=== PATIENT | female | born 1995 | race Caucasian/White ===

== ENCOUNTER 2018-09-28 21:31 | Emergency (ER) | payer SELFPAY ==
[~2018-09-28] VITALS: Ht 165.1 cm; Wt 67.3 kg
[2018-09-28] MEDS ORDERED: KETOROLAC 30 MG/ML VIAL (J1885) IV ONE (22:30)
[2018-09-28] MEDS ORDERED: NS 1,000 ML IV ONE (22:30)
[2018-09-28 22:55] LABS: BASO # 0.1 10^3/uL (0.0-0.2); BASO % 0.7 % (0.0-1.0); EOS # 0.2 10^3/uL (0.0-0.50); EOS % 1.9 % (0.0-3.0); HEMATOCRIT 41.4 % (36.0-47.0); HEMOGLOBIN 13.9 g/dl (12.0-15.5); LYMPH # 2.5 10^3/uL (1.5-6.5); MEAN CORPUSCULAR HEMOGLOBIN 30.3 pg (27.0-33.0); MEAN CORPUSCULAR HGB CONC 33.6 g/dl (32.0-36.5); MEAN CORPUSCULAR VOLUME 90.4 fl (80.0-96.0); MONO # 0.5 10^3/uL (0.0-0.8); MONO % 5.7 % (0.0-5.0); NEUTROPHILS # 5.7 10^3/uL (1.8-7.7); NEUTROPHILS % 63.5 % (36.0-66.0); PLATELET COUNT, AUTOMATED 264 10^3/uL (150-450); RED BLOOD COUNT 4.58 10^6/uL (4.00-5.40)
[2018-09-28 23:00] LABS: APPEARANCE, URINE CLEAR (CLEAR); BACTERIA, URINE AUTO NEGATIVE (NEGATIVE); BILIRUBIN, URINE AUTO NEGATIVE (NEGATIVE); BLOOD, URINE BLOOD 3+ (NEGATIVE); COLOR, URINE YELLOW (YELLOW); GLUCOSE, URINE (UA) AUTO NEGATIVE (NEGATIVE); KETONE, URINE AUTO NEGATIVE (NEGATIVE); LEUKOCYTE ESTERASE, URINE AUTO NEGATIVE (NEGATIVE); MUCUS, URINE SMALL (NEGATIVE); NITRITE, URINE AUTO NEGATIVE (NEGATIVE); PROTEIN, URINE AUTO NEGATIVE (NEGATIVE); RBC, URINE AUTO 148 /HPF (0-3); SQUAMOUS EPITHELIAL CELL UR AU 1 /HPF (0-6); UROBILINOGEN, URINE AUTO 0.2 mg/dL (0.0-2.0); WBC, URINE AUTO 1 /HPF (0-3)
[2018-09-28 23:20] LABS: BLOOD UREA NITROGEN 10 MG/DL (7-18); CALCIUM LEVEL 9.1 MG/DL (8.5-10.1); CARBON DIOXIDE LEVEL 28 MEQ/L (21-32); CHLORIDE LEVEL 109 MEQ/L (98-107); CREATININE FOR GFR 0.86 MG/DL (0.55-1.30); GLUCOSE, FASTING 95 MG/DL (70-100); HCG, SERUM QUALITATIVE NEGATIVE (NEGATIVE); POTASSIUM SERUM 4.1 MEQ/L (3.5-5.1); SODIUM LEVEL 141 MEQ/L (136-145)
--- NOTE | 2018-09-28 23:54 | REPVR ---
EXAM: US Pelvis Complete, Transabdominal EXAM DATE/TIME: 09/28/2018 11:01 PM CLINICAL HISTORY: 22 years old, female; Pain; Pelvic pain; Additional info: Heavy vag bleeding, rlq pain TECHNIQUE: Real-time transabdominal pelvic ultrasound with image documentation. Complete exam. COMPARISON: No relevant prior studies available. FINDINGS: Uterus/cervix: Uterus measures 7.1 x 4.2 x 5.4 cm. Endometrial echocomplex measures 2.5 mm. Right adnexa: Right ovary measures 2.4 x 1.5 x 2.3 cm. Left adnexa: Left ovary measures 3.7 x 2 x 2.5 cm. Free fluid: None. Bladder: Normal. Soft tissues: Imaging of the right lower quadrant does not demonstrate any obvious hernia. IMPRESSION: Unremarkable examination. Electronically signed by: Zack Wolf On 09/28/2018 23:54:20 PM
[2018-09-29 01:43] VITALS: BP 130/81
== END 2018-09-29 01:49 | disposition home or self-care (01) ==
LOC: M ED 21:31
DX: N92.0 Excessive and frequent menstruation with regular cycle (principal); F17.210 Nicotine dependence, cigarettes, uncomplicated
CPT/HCPCS: 36415; 76856; 80048; 81001; 84703; 85025; 96361; 96374; 99284; J1885

== ENCOUNTER → 2019-02-17 | Outpatient (CLI) | payer SELFPAY ==
[2019-02-17 17:25] LABS: BASO % 0.2 % (0.0-1.0); EOS # 0.2 10^3/uL (0.0-0.50); EOS % 1.6 % (0.0-3.0); HEMATOCRIT 37.6 % (36.0-47.0); HEMOGLOBIN 12.4 g/dl (12.0-15.5); LYMPH # 2.1 10^3/uL (1.5-6.5); MEAN CORPUSCULAR HEMOGLOBIN 29.7 pg (27.0-33.0); MONO # 0.6 10^3/uL (0.0-0.8); MONO % 6.3 % (0.0-5.0); NEUTROPHILS # 6.5 10^3/uL (1.8-7.7); NEUTROPHILS % 69.5 % (36.0-66.0); PLATELET COUNT, AUTOMATED 215 10^3/uL (150-450); RED BLOOD COUNT 4.18 10^6/uL (4.00-5.40); WHITE BLOOD COUNT 9.3 10^3/uL (4.0-10.0)
[2019-02-17 20:10] LABS: CHLAMYDIA DNA AMPLIFICATION NEGATIVE (NEGATIVE); GC DNA AMPLIFICATION NEGATIVE (NEGATIVE)
[2019-02-20 11:25] LABS: HEPATITIS C VIRUS ABY INDEX < 0.0 INDEX (<0.8); HIV 1&2 SCREEN CENTAUR NEGATIVE (NEGATIVE); RUBELLA IgG QUALITATIVE IMMUNE (IMMUNE)
== END ==
LOC: M SMT 15:11
PROVIDERS: ATTEND Advanced Practice Midwife
DX: Z36.89 Encounter for other specified antenatal screening (principal)

== ENCOUNTER → 2019-04-12 | Outpatient (CLI) | payer OTHER ==
--- NOTE | 2019-04-12 20:38 | REP ---
Clinical: Anatomical evaluation. Comparison: None . Findings: Examination demonstrates a single live intrauterine in cephalic presentation. motion is identified by technologist. Placenta is noted anterior and grade the zero without evidence for placenta previa or abruption. Amniotic fluid volume is normal. Cervix measures 3.9 cm in length and appears closed. No evidence for nuchal cord. Gestational age by LMP 20 weeks 3 days with [facility] 08/27/2019 . Gestational age by current measurements 20 weeks 6 day with [facility] 08/24/2019 . FHR equals 136 beats per minute. BPD 4.9 cm 20 weeks 6 days HC 18.3 cm 20 weeks 5 days AC 16.2 cm 21 weeks 2 days FL 3.3 cm 20 weeks 3 days HL 3.3 cm 21 weeks 1 day HC/AC ratio 1.13 Estimated weight 384 grams ( 64 percentile). Anatomical assessment demonstrates normal structures including cranium, choroid plexus, cavum, cerebellum/posterior fossa, ventricular outflow tracts, diaphragm, stomach, cord insertion/three-vessel cord, kidneys/bladder, spine, and extremities. Limited evaluation of the facial features, lungs and four-chamber heart view. Impression: Single live intrauterine in cephalic presentation demonstrating appropriate interval growth. Anatomical limitations as noted above. No gross abnormality identified. Electronically Signed by Terrell Chery MD 04/12/2019 08:28 P
== END ==
LOC: M RAD 10:36
PROVIDERS: ATTEND Specialist
DX: Z34.82 Encounter for supervision of other normal pregnancy, second trimester (principal); Z3A.20 20 weeks gestation of pregnancy

== ENCOUNTER → 2019-04-28 | Outpatient (CLI) | payer OTHER ==
--- NOTE | 2019-04-28 11:18 | REP ---
Obstetric ultrasound for anatomy follow-up: On the prior study dated 04/12/2019 the facial features, four-chamber view of the heart and lungs were not optimally demonstrated. The study today is for follow-up of these anatomic structures. On the study today the facial profile, upper lip, four-chamber view of the heart and lungs are adequately demonstrated and are unremarkable. The cranium, choroid plexus, cavum septum pellucidum, cerebellum, cardiac right and left ventricular outflow tracts, diaphragm, stomach, cord insertion, three-vessel cord, kidneys, bladder, spine and upper lower extremities are again identified and are again unremarkable. There are no anomalies. There is a single intrauterine gestation. position is variable. heart rate is 144 beats per minute. The placenta is anterior. There is no placenta previa or abruptio. Placenta is grade zero. The amniotic fluid volume subjectively is normal. The cervix is 4.8 cm length. By today's ultrasound gestational age is 23 weeks 3 days/[facility] 08/22/2019. By the first ultrasound gestational age is 23 01/1990/[facility]ANS 08/15/2019. By LMP gestational age is 22 weeks 5 days/[facility] of 2018. Impression: There are no anomalies. The facial features, lungs and four-chamber view of the heart. Adequately demonstrated and are unremarkable. Electronically Signed by Zachary Rose MD 04/28/2019 11:10 A
== END ==
LOC: M RAD 09:46
PROVIDERS: ATTEND Specialist
DX: Z36.9 Encounter for antenatal screening, unspecified (principal); Z3A.23 23 weeks gestation of pregnancy

== ENCOUNTER → 2019-06-09 | Outpatient (CLI) | payer OTHER ==
[2019-06-09 13:54] LABS: BASO % 0.3 % (0.0-1.0); EOS # 0.3 10^3/uL (0.0-0.5); EOS % 3.5 % (0.0-3.0); HEMATOCRIT 32.4 % (36.0-47.0); HEMOGLOBIN 10.8 g/dl (12.0-15.5); LYMPH # 1.5 10^3/uL (1.5-5.0); LYMPH % 19.1 % (24.0-44.0); MEAN CORPUSCULAR HEMOGLOBIN 32.5 pg (27.0-33.0); MEAN CORPUSCULAR HGB CONC 33.3 g/dl (32.0-36.5); MEAN CORPUSCULAR VOLUME 97.6 fl (80.0-96.0); MONO # 0.6 10^3/uL (0.0-0.8); MONO % 7.5 % (0.0-5.0); NEUTROPHILS # 5.4 10^3/uL (1.5-8.5); NEUTROPHILS % 69.1 % (36.0-66.0); PLATELET COUNT, AUTOMATED 166 10^3/uL (150-450); RED BLOOD COUNT 3.32 10^6/uL (4.00-5.40); WHITE BLOOD COUNT 7.7 10^3/uL (4.0-10.0)
== END ==
LOC: M SMT 09:50
PROVIDERS: ATTEND Specialist
DX: Z34.02 Encounter for supervision of normal first pregnancy, second trimester (principal); Z36.89 Encounter for other specified antenatal screening

== ENCOUNTER → 2019-07-26 | Outpatient (REF) | payer OTHER | LOC: M LAB REF 17:00 | PROVIDERS: ATTEND Advanced Practice Midwife | DX: Z36.85 Encounter for antenatal screening for Streptococcus B (principal) ==

== ENCOUNTER 2019-09-01 13:07 | Inpatient (IN) | payer OTHER ==
[~2019-09-01] VITALS: Ht 165.1 cm; Wt 89.9 kg
[2019-09-01] MEDS: miSOPROStol 50 MCG 1/2 TAB (S0191) PO SCH ×3 (03:27→21:10)
[2019-09-01 13:25] VITALS: BP 133/81
[2019-09-01] MEDS ORDERED: LACTATED RINGER'S 1000 ML IV STA (14:19)
--- NOTE | 2019-09-01 14:32 | HPEPDOC ---
Obstetrical History & Physical General Date of Admission Sep 01, 2019 at 13:07 History of Present Illness Chief Complaint: Induction of labor Information Provided By: Patient Age: 23 : 1 Term: 0 Pre-term: 0 Abortions: 0 Livin Care Care: Good Care Dating Final EDC: Aug 27, 2019 Final EDC by: LMP EGA at Admission: 40 (+5) Antepartum Course Height (inches): 65 Pre- weight (lbs.): 155 Admission Weight (lbs.): 197 Past Medical History Past Obstetrical History : Past Obstetrical History: [address] [employer] History: No pertinent history Past Medical History Surgical History: Denies/None Family History Significant Family History: No pertinent family hx Social History Marital Status: Single Family situation: Spouse/partner home Psychosocial History: No pertinent psych hx * Smoker: non-smoker Alcohol: Denies Drugs: denies Abuse Violence Screening Have you been hit/kicked/slapp: No Have you been sexually assault: No Imunizations Tdap status: declined Influenza Status: declined Allergies Coded Allergies: No Known Allergies (Unverified , 09/28/18) Medications No Active Prescriptions or Reported Meds Physical Examination Physical Examination GENERAL: Alert and oriented times three. BREAST: . ABDOMEN: Gravid and non-tender to touch. FETUS: Is vertex (VTX) by sterile vaginal examination (SVE), fetus is vertex (VTX) by Bharath. HEART RATE: Regular rate and rhythm. LUNGS: Clear to auscultation (CTA). EXTREMITIES: No edema. No clonus. Deep tendon reflexes (DTRs) + 2. Laboratory Data [facility] Laboratory Tests 2 09/01/19 13:18: Serology Scanned Report Hepatitis B Testing Pertinent Laboratoy Data Blood Type: A+ RBC Antibody Screen: Negative HIV: Negative Hepatitis B: Negative Hepatitis C: Negative Rapid Plasma Reagin: Nonreactive Rubella: Immune Chlamydia/Gonorrhea: Negative Group B Streptococcus: Negative Quad Screen Test: Declined Glucose Tolerance Test: 90 Anatomy Ultrasound Ultrasound Date: Apr 12, 2019 Placenta Location: Anterior Normal Anatomy: Yes Placenta Previa: No Estimated Weight (grams): 384 Other Ultrasounds 02/17/19 dating 13w0d 04/28/19 f/u anatomy WNL Steroid Therapy Steroid Therapy: No Vaginal Examination Dilation: Fingertip Effacement: 50% Station: -3 (-4) Cervical Consistency: Soft Cervical Position: Posterior Presentation: Cephalic presentation Assessment Heart Rate (FHR): 155 Variability: Moderate Accelerations: Positive Decelerations: None Tocometer Frequency: irregular Strength: palpated as mild Assessment/Plan Assessment Gisselle is a 23-year-old (G)1 para (P)0-0-0-0 at 40+5 weeks by 13-week ultrasound. Presents to Labor and Delivery (L&D) for planned induction, postdates. Denies regular UC, LOF, bleeding. Reports good movement. Plan Admit and orient. Machine Records Units Supervisor and consent per consult Dr Morel Diet: regular. Group B Streptococcus (GBS) negative. Labs and intravenous (IV) per unit protocol. Counseled on misoprostol, Pitocin and induction of labor (IOL). Lactated Ringers (LR): Bolus 500 mL, then saline lock. Pt plans to labor ad cami. Anticipate normal spontaneous delivery (). C-S as appropriate. Martita Sheth CNM Sep 01, 2019 14:32
[2019-09-01 14:42] LABS: HEMATOCRIT 38.7 % (36.0-47.0); HEMOGLOBIN 12.9 g/dl (12.0-15.5); MEAN CORPUSCULAR HEMOGLOBIN 30.7 pg (27.0-33.0); MEAN CORPUSCULAR HGB CONC 33.3 g/dl (32.0-36.5); MEAN CORPUSCULAR VOLUME 92.1 fl (80.0-96.0); PLATELET COUNT, AUTOMATED 182 10^3/uL (150-450); WHITE BLOOD COUNT 8.2 10^3/uL (4.0-10.0)
[2019-09-01 15:42] VITALS: BP 113/56
[2019-09-01 18:12] VITALS: BP 120/58
[2019-09-01 21:09] VITALS: BP 119/65
[2019-09-01 22:53] VITALS: BP 101/53
[2019-09-01 23:53] VITALS: BP 100/54
[2019-09-02] VITALS (33 sets, daily range): BP systolic 102–142; BP diastolic 47–82
[2019-09-02] MEDS: miSOPROStol 50 MCG 1/2 TAB (S0191) PO SCH (08:21)
[2019-09-02] MEDS ORDERED: LR 1,000 ML IV SCH (12:15)
[2019-09-02] MEDS ORDERED: OXYTOCIN DRIP 30 UNITS in IV 1 EA IV SCH (12:15)
[2019-09-02] MEDS ORDERED: PROMETHAZINE INJ 25 MG/ML VIAL (J2550) IV PRN (20:15)
[2019-09-02] MEDS ORDERED: BUTORPHANOL 2 MG/ML INJ (J0595) IV ONE (21:00)
[2019-09-03] VITALS (14 sets, daily range): BP systolic 120–141; BP diastolic 60–92
[2019-09-03 11:59] LABS: CORD GAS ABE V -7.8; CORD GAS HCO3 V 17.9 MEQ/L; CORD GAS O2 SAT V 76.2 %; CORD GAS PH V 7.291 UNITS; CORD GAS PO2 V 36.1 mmHg; CORD GAS SBC V 17.8 MEQ/L; CORD GAS TCO2 V 19.1 MEQ/L
[2019-09-03 12:02] LABS: CORD GAS ABE A -6.3; CORD GAS HCO3 A 19.3 MEQ/L; CORD GAS O2 SAT A 70.4 %; CORD GAS PCO2 A 39.1 mmHg; CORD GAS PH A 7.311 UNITS; CORD GAS PO2 A 31.5 mmHg; CORD GAS SBC A 18.7 MEQ/L; CORD GAS TCO2 A 20.5 MEQ/L
[2019-09-03] MEDS ORDERED: RHOGAM 300 MCG (1500 IU) INJ (J2790) IM SCH (12:30)
[2019-09-03] MEDS ORDERED: LIDOCAINE 1% MDV 20ML VIAL INFIL ONE (12:30)
[2019-09-03] MEDS ORDERED: ANUSOL HC CREAM 30GM TOP PRN (12:30)
[2019-09-03] MEDS ORDERED: OXYTOCIN DRIP 30 UNITS in IV 1 EA IV SCH (12:30)
[2019-09-03] MEDS ORDERED: METHYLERGONOVINE MALEATE 0.2 MG TAB PO PRN (12:30)
[2019-09-03] MEDS ORDERED: MEASLES,MUMPS,RUBELLA VACCINE INJ (MMR-II) (90707) SC SCH (12:30)
[2019-09-03] MEDS ORDERED: ACETAMINOPHEN 500 MG TAB PO PRN (12:30)
[2019-09-03] MEDS ORDERED: miSOPROStol 200 MCG TAB (S0191) PR ONE (12:30)
[2019-09-03] MEDS ORDERED: ACETAMINOPHEN TAB 650MG DOSE (2X325MG) PO PRN (12:30)
[2019-09-03] MEDS ORDERED: DOCUSATE SODIUM 100 MG CAP PO PRN (12:30)
[2019-09-03] MEDS ORDERED: IBUPROFEN 800 MG TAB PO PRN (12:30)
[2019-09-03] MEDS ORDERED: IBUPROFEN 600 MG TAB PO PRN (12:30)
[2019-09-03] MEDS: DIBUCAINE 1% OINTMENT 30GM TOP PRN (14:45)
--- NOTE | 2019-09-03 18:09 | DN ---
DATE: 09/03/2019 DATE OF DELIVERY: 09/03/2019 TIME OF : 11:48 GENDER: Female. SCORE: 9 and 9 WEIGHT: 3750 grams or 8 pounds, 4 ounces. ESTIMATED BLOOD LOSS: 300 mL ANESTHESIA: None LACERATION: First-degree midline laceration. COUNTS: Five laparotomy sponges accounted for prior to and after delivery. Four sharps removed from delivery field. DELIVERY NOTE: On September 03, 2019, Ms. Arteaga, a 23-year-old, 1, now para 1 had a spontaneous vaginal delivery of a live born female infant, scores 9 and 9, weight was 3750 grams or 8 pounds 4 ounces. Head was delivered occiput anterior (OA) followed by delivery of right anterior shoulder. There was a nuchal cord, which was manually reduced and this was followed by delivery of left posterior shoulder and corpus. was then handed mom with a good cry. Cord was clamped x2, was cut by the father of baby under my direction. Cord gases were then obtained. Cord gases were 7.3, 7.29, base excess of -6.3, -7.8. Placenta was then drained and delivered grossly intact. A premixed bag of 500 mL of normal saline with 30 units of Pitocin was bolused along with uterine massage. The uterus was firm. On inspection, there was a first-degree midline laceration, which was repaired with 3-0 Vicryl Rapide. On re-inspection, cervix, vagina and perineum was grossly intact and hemostatic. Mom and baby recovered in stable condition. The couple decided to name their daughter
[2019-09-04 06:03] VITALS: BP 126/58
[2019-09-04] MEDS: PRENATAL VITAMINS CHEWABLE TABLET PO SCH (09:21)
--- NOTE | 2019-09-04 17:27 | IPNPDOC ---
Progress Note Date of Service: Sep 04, 2019 Day#: 1 Progress Note SUBJECT: She has been ambulating, voiding spontaneously without issue and ashlyn ating regular diet. Denies any pain. Patient did have a fever 09/03/19 of 100.7 but has been afebrile since. OBJECTIVE: VITAL SIGNS: Within normal limits, afebrile. Alert and oriented times three. Breath sounds clear to auscultation. Heart rate: Regular rate and rhythm, no murmurs, rubs or gallops. Abdomen: Fundus firm at U-2. Soft, NTTP. Moderate lochia. ASSESSMENT: Day 1 with a fever of 100.7 on 09/03/19 PLAN: 1. Continue with supportive nursing care. 2. Anticipate discharge to home tomorrow if she continues to be afebrile. VS, I&O, 24H, Fishbone Vital Signs/I&O Vital Signs Date Time Temp Pulse Resp B/P (MAP) Pulse Ox O2 Delivery O2 Flow Rate FiO2 09/04/19 06:03 98.1 81 18 126/58 (80) 09/03/19 14:55 Room Air I&O- Last 24 Hours up to 6 AM 09/04/19 06:00 Intake Total 3108 ml Output Total 300 ml Balance 2808 ml SILVANA NORMAN CNM Sep 04, 2019 17:27
[2019-09-04 18:00] VITALS: BP 119/58
[2019-09-04] MEDS: MOM 30ML SUSPENSION UDC PO PRN (22:35)
[2019-09-05 05:42] VITALS: BP 126/59
[2019-09-05] MEDS ORDERED: ACET-683 PO (07:43)
[2019-09-05] MEDS ORDERED: IBUP80TA PO (07:43)
[2019-09-05] MEDS: PRENATAL VITAMINS CHEWABLE TABLET PO SCH (07:57)
[2019-09-05] MEDS: MOM 30ML SUSPENSION UDC PO PRN (07:57)
[2019-09-05] MEDS: DIBUCAINE 1% OINTMENT 30GM TOP PRN (07:58)
== END 2019-09-05 10:50 | disposition home or self-care (01) | DRG 560 ==
LOC: M LDI 13:07 → M OBS 09-03 14:00
PROVIDERS: ADMIT Advanced Practice Midwife; ATTEND Advanced Practice Midwife
PROC: 10E0XZZ Delivery of Products of Conception, External Approach (ICD-10-PCS; principal; 2019-09-03)
PROC: 0HQ9XZZ Repair Perineum Skin, External Approach (ICD-10-PCS; 2019-09-03)
DX: O48.0 Post-term pregnancy (principal); Z37.0 Single live birth; Z3A.40 40 weeks gestation of pregnancy; O70.0 First degree perineal laceration during delivery; O69.81X0 Labor and delivery complicated by cord around neck, without compression, not applicable or unspecified